=== PATIENT | female | born 1990 | race Two or more races ===

== ENCOUNTER 2018-03-21 01:03 | Emergency (ER) | payer OTHER ==
[~2018-03-21] VITALS: Ht 162.6 cm; Wt 65.8 kg
--- NOTE | 2018-03-21 01:11 | Emergency Room Report ---
History of Present Illness General Chief Complaint: Behavioral Complaint Source: Patient, Medical Record, EMS Present Illness HPI This is a 27-year-old female with unknown psychiatric history. She was brought in by police under restraint is a 5150. She was wandering on the street screaming and acting aggressively. She was telling patrol police lieutenant shoot her. She said she is suicidal and interpeduncular, she will kill her family also. Unknown drug use. Unknown alcohol. Denies any other complaint. Allergies: Coded Allergies: UNABLE TO ASSESS (Unverified , 03/21/18) Patient History Past Medical History: see triage record, old chart reviewed Past Surgical History: unable to obtain Family History: unable to obtain Social History: unable to obtain Last Menstrual Period: unknown Immunizations: other Reviewed Nursing Documentation: PMH: Agreed; PSxH: Agreed Review of Systems ENT: Denies: sore throat Cardiovascular: Denies: chest pain, palpitations Gastrointestinal/Abdominal: Denies: nausea, vomiting, diarrhea Musculoskeletal: Denies: back problems Skin: Denies: rash Neurological: Denies: CARTER, seizures All Other Systems: negative except mentioned in HPI Physical Exam Vital Signs Date Time Temp Pulse Resp B/P (MAP) Pulse Ox O2 Delivery O2 Flow Rate FiO2 03/21/18 00:45 98.5 100 18 145/98 (114) 97 Room Air 98.4 vitals with tachycardia Sp02 EP Interpretation: reviewed, normal General Appearance: alert/responsive, no apparent distress, non-toxic, other - Agitated, screaming, cursing Head: normocephalic, atraumatic Eyes: PERRL, EOMI ENT: oropharynx normal Neck: supple/symm/no masses Respiratory: effort normal, no rhonchi, no wheezing Cardiovascular: no murmur, gallop, rub Gastrointestinal: non-tender, no mass, non-distended, no rebound/guarding, normal bowel sounds Musculoskeletal: strength & tone normal, normal ROM Neurologic: oriented x3, sensory intact, motor strength/tone normal Psychiatric: other - Agitated, screaming, suicidal, homicidal Skin: no rash, normal palpation Medical Decision Making Diagnostic Impression: Primary Impression: Psychosis Qualified Codes: F29 - Unspecified psychosis not due to a substance or known physiological condition Additional Impressions: Amphetamine abuse Suicidal ideations ER Course Patient presents with acute psychosis probably secondary to drug abuse and underlying psych problem. She is placed on a 5150 by police. Initially she was in handcuffs but after Ativan and Haldol, she is calm her we can remove any restraint. Patient is medically clear for psychiatric transfer. Lab Results Impression labs unremarkable Last Vital Signs Date Time Temp Pulse Resp B/P (MAP) Pulse Ox O2 Delivery O2 Flow Rate FiO2 03/21/18 00:45 98.5 100 18 145/98 (114) 97 Room Air 98.4 Status: improved Disposition: XFER TO PSYCH HOSP/UNIT Condition: Stable TERESA VASQUEZ M.D. Mar 21, 2018 01:11
[2018-03-21] MEDS ORDERED: LORazepam Inj 2mg/ml 1ml IV ONE (01:15)
[2018-03-21] MEDS ORDERED: Haloperidol 5mg/ml Inj IM ONE (01:15)
[2018-03-21 01:25] LABS: APPEARANCE,URINE CLEAR; BILIRUBIN, URINE NEGATIVE (NEGATIVE); GLUCOSE, URINE (UA) NEGATIVE (NEGATIVE); KETONES,URINE 1+ (NEGATIVE); LEUKOCYTE ESTERASE ,URINE NEGATIVE (NEGATIVE); NITRITE,URINE NEGATIVE (NEGATIVE); PH,URINE 7 (4.5-8.0); PROTEIN,URINE 2+ (NEGATIVE); UROBILINOGEN,URINE 1 MG/DL (0.0-1.0)
[2018-03-21 01:29] VITALS: BP 138/107
[2018-03-21 01:29] LABS: BASOPHILS % (AUTO) 0.7 % (0.0-2.0); EOSINOPHILS % (AUTO) 0.3 % (0.0-3.0); HEMOGLOBIN 16.5 G/DL (12.0-16.0); LYMPHOCYTES % (AUTO) 21.7 % (20.0-45.0); MEAN CORPUSCULAR VOLUME 91 FL (80-99); MONOCYTES % (AUTO) 8.9 % (1.0-10.0); NEUTROPHILS % (AUTO) 68.4 % (45.0-75.0); PLATELET COUNT 279 K/UL (150-450); RED BLOOD COUNT 5.18 M/UL (4.20-5.40); WHITE BLOOD COUNT 8.7 K/UL (4.8-10.8)
[2018-03-21 01:35] LABS: ANION GAP 17 mmol/L (5-15); BLOOD UREA NITROGEN 14 mg/dL (7-18); CALCIUM 9.3 MG/DL (8.5-10.1); CARBON DIOXIDE 19 MMOL/L (21-32); CHLORIDE 102 MMOL/L (98-107); CREATININE 1.5 MG/DL (0.55-1.30); SODIUM 138 MMOL/L (136-145)
[2018-03-21 01:41] LABS: COLOR,URINE YELLOW
[2018-03-21 01:43] LABS: ALANINE AMINOTRANSFERASE 47 U/L (12-78); ALBUMIN 4.1 G/DL (3.4-5.0); ALKALINE PHOSPHATASE 100 U/L (46-116); ASPARTATE AMINO TRANSFERASE 35 U/L (15-37); BILIRUBIN,TOTAL 1.2 MG/DL (0.2-1.0)
[2018-03-21 01:45] LABS: BILIRUBIN,DIRECT 0.2 MG/DL (0.0-0.3)
[2018-03-21 03:07] VITALS: BP 111/88
[2018-03-21 03:43] LABS: ANION GAP 7 mmol/L (5-15); BLOOD UREA NITROGEN 12 mg/dL (7-18); CALCIUM 7.5 MG/DL (8.5-10.1); CARBON DIOXIDE 23 MMOL/L (21-32); CHLORIDE 111 MMOL/L (98-107); POTASSIUM 3.6 MMOL/L (3.5-5.1); SODIUM 141 MMOL/L (136-145)
[2018-03-21 05:33] VITALS: BP 114/77
[2018-03-21 10:35] VITALS: BP 112/76
[2018-03-21] MEDS ORDERED: NKM (10:43)
[2018-03-21 12:11] VITALS: BP 121/79
[2018-03-21 12:30] VITALS: BP 121/79
== END 2018-03-21 12:32 ==
LOC: EDBD 01:03 → EMR 01:28 → EDBD 01:28 → EMR 12:32
DX: F15.90 Other stimulant use, unspecified, uncomplicated (principal); R45.851 Suicidal ideations; F17.200 Nicotine dependence, unspecified, uncomplicated; Z78.1 Physical restraint status
CPT/HCPCS: 36415; 80048; 80053; 80307; 81003; 81025; 82248; 85025; 96361; 96372; 96374; 99285; G0480; J1630; 80329